=== PATIENT | female | born 1970 | race Caucasian/White ===

== ENCOUNTER 2018-01-05 02:00 | Emergency (ER) | payer MEDICAID ==
[~2018-01-05] VITALS: Ht 162.6 cm; Wt 74.8 kg
[2018-01-05 02:13] VITALS: Ht 162.6 cm; Wt 74.8 kg
[2018-01-05 03:31] VITALS: BP 113/66
== END 2018-01-05 03:31 | disposition home or self-care (01) ==
LOC: ED 02:00 → EDBD 02:00 → ED 03:31
DX: G47.00 Insomnia, unspecified (principal); F41.9 Anxiety disorder, unspecified

== ENCOUNTER 2018-01-14 07:05 | Emergency (ER) | payer MEDICAID ==
[~2018-01-14] VITALS: Ht 162.6 cm; Wt 74.5 kg
[2018-01-14 07:11] VITALS: BP 108/71; Ht 162.6 cm; Wt 74.5 kg
== END 2018-01-14 07:56 | disposition home or self-care (01) ==
LOC: ED 07:05
DX: F41.9 Anxiety disorder, unspecified (principal); G47.00 Insomnia, unspecified

== ENCOUNTER 2018-04-13 11:35 | Emergency (ER) | payer MEDICAID ==
[~2018-04-13] VITALS: Ht 160 cm; Wt 78.5 kg
[2018-04-13 11:37] VITALS: Ht 160 cm; Wt 78.5 kg
[2018-04-13 12:23] VITALS: BP 105/62
[2018-04-13 12:29] LABS: BASOPHIL % 0.3 % (0-2); PLATELET COUNT 379 x10^3mcL (130-400)
[2018-04-13 12:37] LABS: RED CELL DISTRIBUTION WIDTH 15.4 % (11.5-14.5)
[2018-04-13 12:39] LABS: CARBON DIOXIDE 28.6 mmol/L (21-32); CHLORIDE SERUM 103 mmol/L (98-107); CREATININE SERUM 0.7 mg/dL (0.6-1.0); GFR1 > 60 mL/min; GLUCOSE SERUM 97 mg/dL (74-106); POTASSIUM SERUM 4.4 mmol/L (3.5-5.1); SODIUM SERUM 134 mmol/L (136-145)
[2018-04-13 12:44] LABS: ALBUMIN 3.6 g/dL (3.4-5.0); ALKALINE PHOSPHATASE 80 U/L (46-116); ALT/SGPT 18 U/L (14-59); AST/SGOT 13 U/L (15-37); BILIRUBIN TOTAL 0.31 mg/dL (0.20-1.00); TOTAL PROTEIN, SERUM 7.5 g/dL (6.4-8.2)
== END 2018-04-13 14:18 | disposition home or self-care (01) ==
LOC: ED 11:35
PROVIDERS: Emergency Medicine
DX: R55 Syncope and collapse (principal); F41.9 Anxiety disorder, unspecified; F32.9 Major depressive disorder, single episode, unspecified; M54.30 Sciatica, unspecified side
CPT/HCPCS: 82962; 83880; J7030

== ENCOUNTER 2018-11-21 17:09 | Inpatient (IN) | payer MEDICAID ==
[~2018-11-21] VITALS: Ht 157.5 cm; Wt 92.0 kg
--- NOTE | 2018-11-21 17:18 | NUR ---
PT SENT TO LOBBY TO WAIT FOR AVAILABLE BED. NO DISTRESS AND PT IS ALERT AND ORIENTED AT THIS TIME
--- NOTE | 2018-11-21 20:32 | NUR ---
PT SITTING UP ON EDGE OF BED, AAOX4 WITH C/O BODY ACHES SINCE YESTERDAY WITH N/V WITH LT SIDE ABD PAIN AND FEVER/CHILLS TODAY. PT DENIES DIARRHEA/CONSTIPATION, RESP ILLNESS OR PAINFUL URINATION AT THIS TIME.
[2018-11-21 21:49] LABS: BASOPHIL % 0.2 % (0-2); PLATELET COUNT 372 x10^3mcL (130-400); RED CELL DISTRIBUTION WIDTH 13.6 % (11.5-14.5)
[2018-11-21 21:54] LABS: UA SPECIFIC GRAVITY <=1.005 (1.005-1.035); microscopic required? YES; urine erythrocyte 1+ (NEGATIVE)
[2018-11-21 22:04] LABS: CALCIUM 8.8 mg/dL (8.5-10.1); CARBON DIOXIDE 23.1 mmol/L (21-32); CHLORIDE SERUM 100 mmol/L (98-107); CREATININE SERUM 0.9 mg/dL (0.6-1.0); GFR1 > 60 mL/min; GLUCOSE SERUM 105 mg/dL (74-106); POTASSIUM SERUM 3.6 mmol/L (3.5-5.1); SODIUM SERUM 134 mmol/L (136-145)
[2018-11-21 22:11] LABS: ALBUMIN 3.6 g/dL (3.4-5.0); ALKALINE PHOSPHATASE 82 U/L (46-116); ALT/SGPT 25 U/L (14-59); AST/SGOT 21 U/L (15-37); BILIRUBIN TOTAL 0.22 mg/dL (0.20-1.00); CHOLESTEROL 175 mg/dL (<200); LIPASE 101 IU/L (73-393); TOTAL PROTEIN, SERUM 7.8 g/dL (6.4-8.2); TRIGLYCERIDES 98 mg/dL (<150)
[2018-11-21 22:12] LABS: CHOLESTEROL/HDL RATIO 2.5; FREE T4 0.83 ng/dL (0.76-1.46); FREE THYROXINE INDEX 1.7 ug/dL (1.4-4.5); HDL CHOLESTEROL 69 mg/dL (40-60); T4(THYROXINE) 5.7 ug/dL (4.7-13.3)
--- NOTE | 2018-11-21 22:12 | NUR ---
PT RESTING IN BED WITH EYES CLOSED WITH NO SIGNS OF DISTRESS AT THIS TIME. BREATHS EVEN AND UNLABORED.
[2018-11-21 22:34] LABS: T3 TOTAL 0.94 ng/mL
--- NOTE | 2018-11-21 23:38 | NUR ---
PT OFF OF UNIT TO RADIOLOGY.
--- NOTE | 2018-11-22 00:36 | NUR ---
PT LYING IN BED TALKING ON PHONE WITH NO SIGNS OF DISTRESS AT THIS TIME.
[2018-11-22] MEDS ORDERED: LEXAPRO10 MG PO (00:51)
[2018-11-22] MEDS ORDERED: CLONAZEPAM1 MG PO (00:51)
[2018-11-22] MEDS ORDERED: MELOXICAM15 M1 PO (01:17)
[2018-11-22 01:27] LABS: MAGNESIUM 2.2 mg/dL (1.8-2.4); PHOSPHOROUS 3.5 mg/dL (2.5-4.9)
--- NOTE | 2018-11-22 01:39 | NUR ---
REPORT GIVEN TO JUAREZ HERNANDEZ.
--- NOTE | 2018-11-22 01:42 | NUR ---
REPORT GIVEN TO JUAREZ HERNANDEZ.
--- NOTE | 2018-11-22 01:54 | NUR ---
Total fluid resuscitation amount ordered for patient is 3000 mls. At time of admission/transfer to ICU, 2300 mls have infused. Last BP was 97/53 and DAVID PIZARRO is aware that BP will need to be reassessed after fluid infusion completed.
--- NOTE | 2018-11-22 02:00 | NUR ---
PT TRANSFERRED TO ICU BED 4 BY PARDE[facility] BY MYSELF AND SIMON EMT. PT ON FULL CM FOR TRANSPORT. PT ACCEPTED FOR BEDSIDE HANDOFF BY JUAREZ HERNANDEZ TO ASSUME PT CARE. PT AOX4, RESP EVEN AND UNLABORED, NO ACUTE DISTRESS NOTED.
--- NOTE | 2018-11-22 02:12 | NUR ---
PT ADMITTED FROM ER VIA [facility] ACCOMPNI[facility] BY CARA HERNANDEZ AND EMT. PT AMBULATED TO ICU BED WITH STEADY GAIT. PT IS A/O X4, POLISH SPEAKING. SPEECH CLEAR AND APPROPRIATE. PERRLA NOTED. NO ACUTE DISTRESS NOTED. DENIES ANY PAIN OR DISCOMFORT. VITAL SIGNS UPON ARRIVAL: TEMP 98.2 ORAL, BP 98/63 MAP 75, HR 73, RR 18, SPO2 100% ON ROOM AIR. NO SOB NOTED, RESPS E/U. CHEST RISE EQUAL AND SYMMETRICAL. LUNG SOUNDS CTA. TRAVEL INSURANCE AGENT IN PLACE SHOWING NSR. CHEST WALL STABLE. DENIES ANY CP, SYNCOPE, OR DIZZINESS. ABD ROUND, SOFT NONTENDER TO TOUCH. VOIDS FREELY, PT VOIDED ON BSC UPON ARRIVAL. NO VAGINAL BLEEDING NOTED. IV TO R AC G 22 INTACT AND PATENT, IVF NS INFUSING @ 150ML/HR. PT ABLE TO REPOSITION SELF INDEPENDENTLY. PT TEACHING PROVIDED REGARDING CALL LIGHT USE, VERBALIZED UNDERSTANDING. ALL NEEDS MET AT THIS TIME. WILL CONTINUE TO MONITOR.
[2018-11-22 02:51] VITALS: BP 98/63
[2018-11-22 03:13] VITALS: BP 101/47
--- NOTE | 2018-11-22 03:19 | NUR ---
DR PICHARDO AT BEDSIDE WITH FLAQUITA EASTON) TO TRANSLATE.
[2018-11-22 05:28] LABS: BASOPHIL % 0.2 % (0-2); PLATELET COUNT 325 x10^3mcL (130-400); RED CELL DISTRIBUTION WIDTH 14.3 % (11.5-14.5)
[2018-11-22 05:44] LABS: CALCIUM 7.8 mg/dL (8.5-10.1); CARBON DIOXIDE 22.2 mmol/L (21-32); CHLORIDE SERUM 107 mmol/L (98-107); CREATININE SERUM 0.8 mg/dL (0.6-1.0); GFR1 > 60 mL/min; GLUCOSE SERUM 105 mg/dL (74-106); POTASSIUM SERUM 3.6 mmol/L (3.5-5.1); SODIUM SERUM 140 mmol/L (136-145)
[2018-11-22 07:39] VITALS: BP 96/57
--- NOTE | 2018-11-22 07:42 | NUR ---
IV SITE TO RAC NOTED TO BE INFILTRATED AND WITH SWELLING TO RIGHT FOREARM. IVF STOPPED AND DISCONNECTED. IV REMOVED WITH CATH INTACT. PILLOWS PROVIDED TO ELEVATE RIGHT ARM. PRIMARY RN AWARE.
--- NOTE | 2018-11-22 07:45 | NUR ---
PT COMPLAINING OF 3-4/10 PAIN TO RUE AT INFILTRATION SITE. NO REDNESS NOTED. PULSES PALPABLE DISTAL TO SITE. ARM ELEVATED ON PILLOWS. WILL MEDICATE PER EMAR
[2018-11-22 08:22] VITALS: Ht 157.5 cm; Wt 92.0 kg
--- NOTE | 2018-11-22 09:00 | NUR ---
PT AMBUL[place] [facility] [place]. STEADY GAIT.
--- NOTE | 2018-11-22 10:56 | NUR ---
DR. UGARTE, RESIDENTS, PSYCHOLOGY TECHNICIAN AND PRIMARY RN AT BEDSIDE FOR MORNING ROUNDS. PLAN OF CARE DISCUSSED. STABLE FOR MST TRANSFER.
[2018-11-22 11:45] VITALS: BP 106/64
--- NOTE | 2018-11-22 12:39 | NUR ---
PT UNCOMFORTABLE IN RECLINER, WANTS TO MOVE BACK INTO BED, PT ASSISTED BACK TO BED WITHOUT COMPLICATIONS.
--- NOTE | 2018-11-22 14:20 | NUR ---
REPORT GIVEN TO ATIF HERNANDEZ. ALL QUESTIONS ADDRESSED.
--- NOTE | 2018-11-22 15:24 | NUR ---
INFORMED PT'S DAUGHTER, CHRISTY, OF PATIENTS TRANSFER AND PLAN OF CARE. VERBALIZES UNDERSTANDING
--- NOTE | 2018-11-22 16:08 | NUR ---
RECEIVED PT FROM ICU IN NO ACUTE DISTRESS. AAOX4. RESP EVEN AND UNLABORED ON RA. C/O MILD L FLANK PAIN BUT TOLERABLE. VOIDING FREELY. IV TO LFA, NO REDNESS OR SWELLING. ORIENTED TO ROOM AND SURROUNDINGS. BED IN LOW POSITION, CALL LIGHT WITHIN REACH. WILL CONTINUE TO MONITOR.
[2018-11-22 16:58] VITALS: BP 107/65
--- NOTE | 2018-11-22 18:20 | NUR ---
PT SITTING UP IN BED EATING DINNER. NO ACUTE DISTRESS. C/O MILD L FLANK PAIN BUT TOLERABLE. VOIDING FREELY. IVF INFUSING, NO REDNESS OR SWELLING. BED IN LOW POSITION, CALL LIGHT WITHIN REACH. WILL ENDORSE TO ONCOMING SHIFT.
[2018-11-22 19:57] VITALS: BP 94/52
--- NOTE | 2018-11-22 20:04 | NUR ---
RECEIVED PT IN BED AAOX4 HAITIAN SPEAKING NO ACUTE DISTRESS NOTED , PT DENY PAIN TELE NUMBER 30 SHOWS NSR HR 82, PIV INTACT INFUSING WELL . CALL LIGHT WITHIN PT'S REACH , WILL CON';T TO MONITOR AND ASSIST PT WITH CARE.
--- NOTE | 2018-11-23 02:51 | NUR ---
I HAVE REVIEWED THE DATA COLLECTION BY CHEST PAINTING AND SEALING SUPERVISOR (NAME):CHRISTIANA GUTIERREZ ENTERED ON (DATE/TIME): I CONCUR WITH THE DATA AND ANY EXCEPTIONS OR COMMENTS ARE LISTED BELOW:
--- NOTE | 2018-11-23 02:58 | NUR ---
PT C/O RIGHT FLANK PAIN 02/28 NORCO GIVEN .
[2018-11-23 04:56] VITALS: BP 100/59
[2018-11-23 06:02] LABS: BASOPHIL % 0.2 % (0-2); PLATELET COUNT 327 x10^3mcL (130-400); RED CELL DISTRIBUTION WIDTH 13.5 % (11.5-14.5)
--- NOTE | 2018-11-23 06:07 | NUR ---
NO CHANGES OF CONDITION NOTED , ALL DUE MEDS GIVEN NO REACTION NOTED, POST NORCO PT DENY PAIN , PIV INTACT INFUSING WELL , TELE NSR .
--- NOTE | 2018-11-23 07:15 | NUR ---
SEEN RESTING WITH EYES CLOSED. NO RESP DISTRESS NOTED. BREATHING E/U ON ROOM AIR. TELE# 30 NSR HR=69. IVF NS TO LFA INFUSING WELL AT 100ML/HR. CALL LIGHT NOTED PLACED WITHIN EASY REACH, SIDERAILS UP X2.
[2018-11-23 07:18] LABS: CALCIUM 7.9 mg/dL (8.5-10.1); CARBON DIOXIDE 21.8 mmol/L (21-32); CHLORIDE SERUM 108 mmol/L (98-107); CREATININE SERUM 0.7 mg/dL (0.6-1.0); GFR1 > 60 mL/min; GLUCOSE SERUM 109 mg/dL (74-106); MAGNESIUM 2.3 mg/dL (1.8-2.4); PHOSPHOROUS 3.4 mg/dL (2.5-4.9); POTASSIUM SERUM 4.4 mmol/L (3.5-5.1); SODIUM SERUM 140 mmol/L (136-145)
--- NOTE | 2018-11-23 08:23 | NUR ---
AM SCHEDULED MEDS GIVEN. NORCO 1 TAB PO GIVEN FOR LT FLANK PAIN. WILL CONTINUE TO MONITOR.
[2018-11-23 09:01] VITALS: BP 100/63
--- NOTE | 2018-11-23 10:40 | NUR ---
DOCTOR UGARTE AND MEDICAL TEAM AT BEDSIDE FOR AM ROUND. PATIENT MADE AWARE OF CURRENT CONDITION AND PLAN OF CARE.
[2018-11-23 12:36] VITALS: BP 95/52
--- NOTE | 2018-11-23 15:30 | NUR ---
REC PT FROM DAVID BRUNNER, PT LAYING IN BED ON THE PHONE. AA/O X4 BREATHING EVEN AND UNLABORED ON RA. NO ACUTE RESP DISTRESS OR SOB NOTED. TELE 30 SR NOTED/ DENIES ANY CP OR PRESSURE. VOIDS. AMB. IV TO THE LFA INTACT AND PATENT/ INFUSING AT 100ML/HR. WILL CONTINUE TO MONITOR.
[2018-11-23 16:59] VITALS: BP 102/62
--- NOTE | 2018-11-23 17:31 | NUR ---
PT C/O ABD PAIN 02/28., MEDICATED PER EMAR.
--- NOTE | 2018-11-23 17:49 | NUR ---
NO ACUTE CHANGES AT THIS TIME. NO ACUTE RESP DISTRESS OR SOB NOTED. TOLERATED 100 % OF DINNER. MEDICATED PER EMAR FOR ABD PAIN. IV TO THE LFA INTACT AND PATENT. CALL LIGHT IN REACH. BED IN LOW POSITION. WILL CONTINUE TO MONITOR.
--- NOTE | 2018-11-23 18:16 | NUR ---
WILL ENDORSE TO INCOMING RN.
--- NOTE | 2018-11-23 19:05 | NUR ---
RECEIVED PT FROM PREVIOUS SHIFT NURSE. PT AOX4. DENIES KAUFMAN/DIZZINESS. TELE #30, NSR, HR 80. DENIES CP/PRESSURE. NO SOB/DIFFICULTY BREATHING ON RA. IV TO LFA, INTACT AND PATENT. BED IN LOWEST POSITION. CALL LIGHT WITHIN REACH. WILL CONTINUE TO MONITOR.
[2018-11-23 20:55] VITALS: BP 115/68
--- NOTE | 2018-11-24 01:03 | NUR ---
PT RESTING IN BED. RR EVEN AND UNLABORED. NO ACUTE DISTRESS NOTED. CALL LIGHT WITHIN REACH. BED IN LOWEST POSITION. WILL CONTINUE TO MONITOR.
[2018-11-24 04:43] VITALS: BP 96/60
[2018-11-24 06:22] LABS: BASOPHIL % 0.3 % (0-2); PLATELET COUNT 362 x10^3mcL (130-400); RED CELL DISTRIBUTION WIDTH 13.4 % (11.5-14.5)
[2018-11-24 06:57] LABS: CALCIUM 8.5 mg/dL (8.5-10.1); CHLORIDE SERUM 104 mmol/L (98-107); CREATININE SERUM 0.7 mg/dL (0.6-1.0); GFR1 > 60 mL/min; GLUCOSE SERUM 89 mg/dL (74-106); MAGNESIUM 2.2 mg/dL (1.8-2.4); PHOSPHOROUS 3.3 mg/dL (2.5-4.9); POTASSIUM SERUM 4.4 mmol/L (3.5-5.1); SODIUM SERUM 139 mmol/L (136-145)
--- NOTE | 2018-11-24 07:25 | NUR ---
AAO X4.C/O MILD ABD'L DISCOMFORT.CLAIMS TO FEEL A LITTLE BIT CONSTIPATED.LUNGS CLEAR.ON SR ON THE MONITOR.IVF NS GOING AT 100 ML/HR INFUSING WELL.CALL LIGHT WITHIN REACH.INSTRUCTED TO CALL FOR ANY PAIN/DISCOMFORT.WILL CONTINUE TO MONITOR PT.
[2018-11-24 09:14] VITALS: BP 105/66
[2018-11-24 12:30] VITALS: BP 92/54
[2018-11-24] MEDS ORDERED: CIPRO250 MG PO (14:38)
--- NOTE | 2018-11-24 15:23 | NUR ---
GAVE DULCOLAX SUPP ORDERED FOR C/O CONSTIPATION.
[2018-11-24 15:24] VITALS: BP 92/54
--- NOTE | 2018-11-24 16:02 | NUR ---
PT HAD A LARGE BM AFTER GIVING HER DULCOLAX SUPP.PT D/C TO HOME.IV AND MONITOR D/C'D.RX AND D/C INSTRUCTION GIVEN.USES MACHINIST AUTOMOTIVE PHONE TO D/C PT.VERBALIZES UNDERSTANDING.AWAITING FOR FAMILY TO PICK HER UP.
--- NOTE | 2018-11-24 16:41 | NUR ---
family here to pickle maker pt.went down via wheelchair accompanied by family and specialty plant supervisor.
== END 2018-11-24 16:43 | disposition home or self-care (01) | DRG 720 ==
LOC: ED 17:09 → IC 11-22 00:38 → DU 11-22 00:38 → IC 11-22 02:00 → DU 11-22 16:05
PROVIDERS: Specialist; ADMIT Internal Medicine
DX: A41.9 Sepsis, unspecified organism (principal); I95.9 Hypotension, unspecified; N39.0 Urinary tract infection, site not specified; F32.9 Major depressive disorder, single episode, unspecified; G47.00 Insomnia, unspecified; M79.10 Myalgia, unspecified site; Z68.34 Body mass index [BMI] 34.0-34.9, adult
CPT/HCPCS: 84439; 87804; J0696; J1885; J2405; J3010; J7030; Q0092